=== PATIENT | male | born 1955 | race Caucasian/White ===

== ENCOUNTER 2019-07-16 13:59 | Inpatient (IN) ==
[2019-07-16 16:56] LABS: Basophils # 0.1 10*3/uL (0.0-0.2); Basophils % 0.6 % (0.0-0.8); Eosinophils # 0.2 10*3/uL (0.0-0.87); Eosinophils % 2.1 % (0.00-10.9); Hematocrit 31.4 VOL% (42.0-52.0); Hemoglobin 10.1 GM/DL (14.0-18.0); Immature Granulocytes % 0.5 %; Immature Granulocytes Absolute 0.04 #; Lymphocytes # 0.9 10*3/uL (1.4-4.0); Mean Corpuscular HGB Conc 32.2 GM/DL (32-36); Mean Corpuscular Volume 92.9 FL (87-102); Monocytes % 8.6 % (1.7-12.7); Neutrophils % 78.2 % (38.7-73.9); Platelet Count 474 T/CUMM (130-400); Red Blood Count 3.38 MC/CUMM (3.8-5.5); Red Cell Distribution Width 14.3 % (9.3-17.3); White Blood Count 8.6 T/CUMM (4-12)
[2019-07-16] MEDS: AMPICILLIN/SULBACTAM 3,000 MG in SODIUM CHLORIDE 0.9% 100 ML IV SCH ×2 (17:16→22:06)
[2019-07-16 17:24] LABS: Albumin 2.4 G/DL (3.4-5.0); Bilirubin,Total 0.8 MG/DL (0.2-1.0); Calcium 9.1 MG/DL (8.5-10.1); Osmolality,Calculated 284.1 MOS/KG (273-304); Total Protein 8.2 G/DL (6.4-8.3)
[2019-07-16] MEDS ORDERED: GLUCAGON 1 MG VIAL IM PRN (17:31)
[2019-07-16] MEDS ORDERED: DEXTROSE 50% 25 GM/50 ML VIAL IV PRN (17:38)
[2019-07-16] MEDS: ACETAMINOPHEN 325 MG TABLET PO PRN (17:45)
[2019-07-16] MEDS ORDERED: DEXTROSE 10% 25 GM/250 ML BAG IV PRN (18:00)
[2019-07-16] MEDS: DEXT 5% NACL 0.45% KCL 10 MEQ 10 MEQ/1,000 ML BAG IV SCH (18:21)
[2019-07-16] MEDS: ENOXAPARIN 40 MG/0.4 ML SYRINGE SUBCUT SCH (18:22)
[2019-07-16] MEDS: CIPROFLOXACIN 500 MG TABLET PO SCH (20:54)
[2019-07-16] MEDS: GENTAMICIN INJ 560 MG in SODIUM CHLORIDE 0.9% 100 ML IV SCH (20:54)
[2019-07-16] MEDS: INSULIN LISPRO 100 UNIT/ML SUBCUT SCH (21:14)
[2019-07-17] MEDS: ACETAMINOPHEN 325 MG TABLET PO PRN ×3 (01:56→20:02)
[2019-07-17] MEDS: AMPICILLIN/SULBACTAM 3,000 MG in SODIUM CHLORIDE 0.9% 100 ML IV SCH ×4 (03:28→21:12)
[2019-07-17] MEDS: INSULIN LISPRO 100 UNIT/ML SUBCUT SCH ×4 (11:15→20:10)
[2019-07-17] MEDS: CIPROFLOXACIN 500 MG TABLET PO SCH ×2 (11:16→20:03)
[2019-07-17] MEDS: ENOXAPARIN 40 MG/0.4 ML SYRINGE SUBCUT SCH (18:27)
[2019-07-17] MEDS: GENTAMICIN INJ 560 MG in SODIUM CHLORIDE 0.9% 100 ML IV SCH (20:04)
[2019-07-17] MEDS: DEXT 5% NACL 0.45% KCL 10 MEQ 10 MEQ/1,000 ML BAG IV SCH (20:08)
[2019-07-18] MEDS: AMPICILLIN/SULBACTAM 3,000 MG in SODIUM CHLORIDE 0.9% 100 ML IV SCH ×4 (03:31→21:11)
[2019-07-18 05:41] LABS: Basophils # 0.1 10*3/uL (0.0-0.2); Basophils % 1.2 % (0.0-0.8); Eosinophils # 0.3 10*3/uL (0.0-0.87); Eosinophils % 5.7 % (0.00-10.9); Hematocrit 30.8 VOL% (42.0-52.0); Hemoglobin 9.8 GM/DL (14.0-18.0); Immature Granulocytes % 0.3 %; Immature Granulocytes Absolute 0.02 #; Lymphocytes # 1.5 10*3/uL (1.4-4.0); Lymphocytes % 24.6 % (21.2-54.2); Mean Corpuscular HGB Conc 31.8 GM/DL (32-36); Mean Corpuscular Volume 92.5 FL (87-102); Mean Platelet Volume 9.5 FL (9.6-12.0); Monocytes % 10.5 % (1.7-12.7); Neutrophils % 57.7 % (38.7-73.9); Platelet Count 385 T/CUMM (130-400); Red Blood Count 3.33 MC/CUMM (3.8-5.5); Red Cell Distribution Width 14.1 % (9.3-17.3)
[2019-07-18 06:06] LABS: Calcium 8.9 MG/DL (8.5-10.1); Osmolality,Calculated 278.4 MOS/KG (273-304)
[2019-07-18] MEDS: CIPROFLOXACIN 500 MG TABLET PO SCH ×2 (09:39→20:16)
[2019-07-18] MEDS: INSULIN LISPRO 100 UNIT/ML SUBCUT SCH ×4 (10:24→20:20)
[2019-07-18] MEDS: ENOXAPARIN 40 MG/0.4 ML SYRINGE SUBCUT SCH (17:34)
[2019-07-18] MEDS: DEXT 5% NACL 0.45% KCL 10 MEQ 10 MEQ/1,000 ML BAG IV SCH (17:34)
[2019-07-18] MEDS: GENTAMICIN INJ 560 MG in SODIUM CHLORIDE 0.9% 100 ML IV SCH (20:17)
[2019-07-18] MEDS: ACETAMINOPHEN 325 MG TABLET PO PRN (21:17)
[2019-07-19] MEDS: AMPICILLIN/SULBACTAM 3,000 MG in SODIUM CHLORIDE 0.9% 100 ML IV SCH ×4 (04:42→22:03)
[2019-07-19] MEDS: CIPROFLOXACIN 500 MG TABLET PO SCH ×2 (09:08→20:24)
[2019-07-19] MEDS: INSULIN LISPRO 100 UNIT/ML SUBCUT SCH ×3 (13:38→20:30)
[2019-07-19] MEDS: ACETAMINOPHEN 325 MG TABLET PO PRN (13:42)
[2019-07-19] MEDS: ENOXAPARIN 40 MG/0.4 ML SYRINGE SUBCUT SCH (18:34)
[2019-07-19] MEDS: GENTAMICIN INJ 560 MG in SODIUM CHLORIDE 0.9% 100 ML IV SCH (20:25)
[2019-07-19] MEDS: DEXT 5% NACL 0.45% KCL 10 MEQ 10 MEQ/1,000 ML BAG IV SCH (20:28)
[2019-07-20] MEDS: AMPICILLIN/SULBACTAM 3,000 MG in SODIUM CHLORIDE 0.9% 100 ML IV SCH ×4 (03:28→22:26)
[2019-07-20] MEDS: INSULIN LISPRO 100 UNIT/ML SUBCUT SCH ×4 (09:11→20:22)
[2019-07-20] MEDS: CIPROFLOXACIN 500 MG TABLET PO SCH ×2 (09:27→20:22)
[2019-07-20] MEDS: ENOXAPARIN 40 MG/0.4 ML SYRINGE SUBCUT SCH (18:24)
[2019-07-20] MEDS: DEXT 5% NACL 0.45% KCL 10 MEQ 10 MEQ/1,000 ML BAG IV SCH (18:25)
[2019-07-20] MEDS: ACETAMINOPHEN 325 MG TABLET PO PRN (20:22)
[2019-07-20] MEDS: GENTAMICIN INJ 560 MG in SODIUM CHLORIDE 0.9% 100 ML IV SCH (20:23)
[2019-07-21] MEDS: AMPICILLIN/SULBACTAM 3,000 MG in SODIUM CHLORIDE 0.9% 100 ML IV SCH ×3 (04:39→18:55)
[2019-07-21 04:46] LABS: Basophils # 0.1 10*3/uL (0.0-0.2); Basophils % 1.3 % (0.0-0.8); Eosinophils # 0.3 10*3/uL (0.0-0.87); Eosinophils % 5.3 % (0.00-10.9); Hematocrit 32.7 VOL% (42.0-52.0); Hemoglobin 10.4 GM/DL (14.0-18.0); Immature Granulocytes % 0.8 %; Immature Granulocytes Absolute 0.05 #; Lymphocytes # 2.1 10*3/uL (1.4-4.0); Lymphocytes % 35.1 % (21.2-54.2); Mean Corpuscular HGB Conc 31.8 GM/DL (32-36); Mean Platelet Volume 9.6 FL (9.6-12.0); Monocytes % 13.3 % (1.7-12.7); Neutrophils % 44.2 % (38.7-73.9); Platelet Count 473 T/CUMM (130-400); Red Blood Count 3.48 MC/CUMM (3.8-5.5); Red Cell Distribution Width 13.9 % (9.3-17.3)
[2019-07-21 05:45] LABS: Calcium 8.4 MG/DL (8.5-10.1)
[2019-07-21] MEDS: INSULIN LISPRO 100 UNIT/ML SUBCUT SCH ×3 (08:09→18:55)
[2019-07-21] MEDS ORDERED: RIFAMPIN 300 MG CAPSULE PO SCH (09:00)
[2019-07-21] MEDS: CIPROFLOXACIN 500 MG TABLET PO SCH ×2 (09:57→18:54)
[2019-07-21] MEDS ORDERED: LEVOFLOXACIN 750 MG TABLET PO SCH (10:00)
[2019-07-21 16:47] VITALS: BP 142/83
[2019-07-21] MEDS: DEXT 5% NACL 0.45% KCL 10 MEQ 10 MEQ/1,000 ML BAG IV SCH (18:55)
[2019-07-21] MEDS: ENOXAPARIN 40 MG/0.4 ML SYRINGE SUBCUT SCH (18:55)
== END 2019-07-21 18:58 | disposition home or self-care (01) | DRG 74 ==
LOC: N.3E 14:31
PROVIDERS: ADMIT Specialist; ATTEND Specialist

== ENCOUNTER 2021-05-23 12:03 | Inpatient (IN) ==
[2021-05-23] MEDS ORDERED: DEXTROSE 50% 25 GM/50 ML VIAL IV PRN (12:17)
[2021-05-23] MEDS ORDERED: GLUCAGON 1 MG VIAL IM PRN (12:17)
[2021-05-23] MEDS ORDERED: ONDANSETRON 4 MG/2 ML VIAL IV PRN (12:17)
[2021-05-23 14:21] LABS: Basophils # 0.1 10*3/uL (0.0-0.2); Basophils % 0.7 % (0.0-0.8); Eosinophils # 0.3 10*3/uL (0.0-0.87); Eosinophils % 4.5 % (0.00-10.9); Hemoglobin 13.3 GM/DL (14.0-18.0); Immature Granulocytes % 0.4 %; Immature Granulocytes Absolute 0.03 #; Lymphocytes # 1.5 10*3/uL (1.4-4.0); Lymphocytes % 19.7 % (21.2-54.2); Mean Corpuscular HGB Conc 32.4 GM/DL (32-36); Mean Corpuscular Volume 90.5 FL (87-102); Mean Platelet Volume 9.8 FL (9.6-12.0); Monocytes % 9.4 % (1.7-12.7); Neutrophils % 65.3 % (38.7-73.9); Platelet Count 470 T/CUMM (130-400); Red Blood Count 4.53 MC/CUMM (3.8-5.5); Red Cell Distribution Width 13.6 % (9.3-17.3); White Blood Count 7.6 T/CUMM (4-12)
[2021-05-23 14:34] LABS: Albumin 2.7 G/DL (3.4-5.0); Bilirubin,Total 0.4 MG/DL (0.20-1.00); Calcium 9.2 MG/DL (8.5-10.1); Osmolality,Calculated 274.7 MOS/KG (273-304); Potassium 3.7 MMOL/L (3.5-5.1); Total Protein 8.1 G/DL (6.4-8.2)
[2021-05-23] MEDS ORDERED: VANCOMYCIN INJ 1,750 MG in SODIUM CHLORIDE 0.9% 500 ML IV ONE (15:00)
[2021-05-23] MEDS: PIPERACILLIN/TAZOBACTAM 3,375 MG in SODIUM CHLORIDE 0.9% 100 ML IV SCH ×2 (15:01→23:05)
[2021-05-23] MEDS: SODIUM CHLORIDE 0.45% 1,000 ML IV SCH ×2 (15:01→23:04)
[2021-05-23 15:39] LABS: Bilirubin,Urine Negative (Negative); Blood, Urine Negative (Negative); Glucose,Urine (UA) Negative (Negative); Ketones,Urine Negative (Negative); Mucus,Urine Occasional /LPF (Occasional); Nitrite,Urine Negative (Negative); Protein,Urine Negative; RBC,Urine <1 /HPF (0-4); Squamous Epithelial Cell,Urine Occasional /HPF (0-10); Urine Appearance CLEAR (Clear); Urine Color Straw (Yellow); Urine Specific Gravity 1.004 (1.001-1.035); Urine Urobilinogen < 2.0 EU/DL (0.2-1.0)
[2021-05-23] MEDS: ENOXAPARIN 40 MG/0.4 ML SYRINGE SUBCUT SCH (16:00)
[2021-05-23] MEDS: VANCOMYCIN INJ 1,750 MG in SODIUM CHLORIDE 0.9% 500 ML IV SCH (16:04)
[2021-05-23] MEDS: INSULIN LISPRO 100 UNIT/ML SUBCUT SCH ×2 (17:09→20:51)
[2021-05-23] MEDS: ACETAMINOPHEN 325 MG TABLET PO PRN (19:03)
[2021-05-23] MEDS: DOCUSATE SODIUM 100 MG CAPSULE PO SCH (20:39)
[2021-05-24] MEDS: VANCOMYCIN INJ 1,750 MG in SODIUM CHLORIDE 0.9% 500 ML IV SCH ×2 (03:15→17:43)
[2021-05-24] MEDS: PANTOPRAZOLE 40 MG TABLET PO SCH (05:29)
[2021-05-24 06:06] LABS: Risk Ratio 3.49
[2021-05-24] MEDS: SODIUM CHLORIDE 0.45% 1,000 ML IV SCH ×2 (06:15→17:44)
[2021-05-24] MEDS: PIPERACILLIN/TAZOBACTAM 3,375 MG in SODIUM CHLORIDE 0.9% 100 ML IV SCH ×2 (06:27→17:43)
[2021-05-24 08:45] LABS: Basophils % 0.1 % (0.0-0.8); Eosinophils # 0.3 10*3/uL (0.0-0.87); Eosinophils % 4.1 % (0.00-10.9); Hematocrit 37.7 VOL% (42.0-52.0); Immature Granulocytes % 0.5 %; Immature Granulocytes Absolute 0.04 #; Lymphocytes # 0.6 10*3/uL (1.4-4.0); Lymphocytes % 7.2 % (21.2-54.2); Mean Corpuscular HGB Conc 31.8 GM/DL (32-36); Mean Corpuscular Volume 90.6 FL (87-102); Mean Platelet Volume 9.9 FL (9.6-12.0); Monocytes % 7.1 % (1.7-12.7); Platelet Count 463 T/CUMM (130-400); Red Blood Count 4.16 MC/CUMM (3.8-5.5); Red Cell Distribution Width 13.9 % (9.3-17.3); White Blood Count 8.1 T/CUMM (4-12)
[2021-05-24 09:02] LABS: Calcium 8.4 MG/DL (8.5-10.1); Osmolality,Calculated 276.4 MOS/KG (273-304)
[2021-05-24] MEDS: DOCUSATE SODIUM 100 MG CAPSULE PO SCH ×2 (09:06→21:17)
[2021-05-24] MEDS: amLODIPine 10 MG TABLET PO SCH (09:06)
[2021-05-24] MEDS: metFORMIN 500 MG TABLET PO SCH ×2 (09:06→19:47)
[2021-05-24] MEDS: SERTRALINE 25 MG TABLET PO SCH (09:06)
[2021-05-24] MEDS: LOSARTAN 50 MG TABLET PO SCH (09:06)
[2021-05-24] MEDS: INSULIN LISPRO 100 UNIT/ML SUBCUT SCH ×4 (09:07→20:36)
[2021-05-24] MEDS ORDERED: LIDOCAINE 1% 20 ML VIAL ONE (12:07)
[2021-05-24] MEDS ORDERED: BUPIVACAINE MPF 0.25% 30 ML VIAL ONE (12:07)
[2021-05-24] MEDS ORDERED: fentaNYL 100 MCG/2 ML VIAL ONE (13:04)
[2021-05-24] MEDS ORDERED: MIDAZOLAM 2 MG/2 ML VIAL ONE (13:04)
[2021-05-24] MEDS ORDERED: LIDOCAINE 2% 5 ML VIAL ONE (13:23)
[2021-05-24] MEDS ORDERED: LACTATED RINGERS 1,000 ML IV ONE (13:23)
[2021-05-24] MEDS ORDERED: propofoL 200 MG/20 ML VIAL IV ONE (13:23)
[2021-05-24] MEDS ORDERED: SEVOFLURANE 1 UNIT/15 MINUTE INH ONE (13:23)
[2021-05-24] MEDS ORDERED: PHENYLEPHRINE 1 MG/10 ML SYRINGE IV ONE (13:24)
[2021-05-24] MEDS ORDERED: HYDROmorphone 2 MG/1 ML VIAL IV PRN (14:30)
[2021-05-24] MEDS ORDERED: ONDANSETRON 4 MG/2 ML VIAL IV PRN (14:30)
[2021-05-24] MEDS: METOPROLOL TARTRATE 25 MG TABLET PO SCH ×2 (17:42→21:00)
[2021-05-24] MEDS: HYDROmorphone 2 MG/1 ML VIAL IV PRN (21:02)
[2021-05-24] MEDS: ATORVASTATIN 20 MG TABLET PO SCH (21:04)
[2021-05-24] MEDS: ACETAMINOPHEN 325 MG TABLET PO PRN (21:04)
[2021-05-24] MEDS: ENOXAPARIN 40 MG/0.4 ML SYRINGE SUBCUT SCH (21:04)
[2021-05-25] MEDS: PIPERACILLIN/TAZOBACTAM 3,375 MG in SODIUM CHLORIDE 0.9% 100 ML IV SCH ×3 (02:00→19:25)
[2021-05-25] MEDS: VANCOMYCIN INJ 1,750 MG in SODIUM CHLORIDE 0.9% 500 ML IV SCH ×2 (06:20→17:00)
[2021-05-25] MEDS: PANTOPRAZOLE 40 MG TABLET PO SCH (06:21)
[2021-05-25] MEDS: DOCUSATE SODIUM 100 MG CAPSULE PO SCH ×2 (08:57→20:00)
[2021-05-25] MEDS: LOSARTAN 50 MG TABLET PO SCH (08:58)
[2021-05-25] MEDS: metFORMIN 500 MG TABLET PO SCH ×2 (08:58→19:24)
[2021-05-25] MEDS: SERTRALINE 25 MG TABLET PO SCH (08:58)
[2021-05-25] MEDS: amLODIPine 10 MG TABLET PO SCH (08:58)
[2021-05-25] MEDS: INSULIN LISPRO 100 UNIT/ML SUBCUT SCH ×4 (08:58→19:34)
[2021-05-25] MEDS: METOPROLOL TARTRATE 25 MG TABLET PO SCH ×2 (08:58→19:59)
[2021-05-25] MEDS: HYDROmorphone 2 MG/1 ML VIAL IV PRN (16:09)
[2021-05-25] MEDS: ACETAMINOPHEN 325 MG TABLET PO PRN (16:59)
[2021-05-25] MEDS: ENOXAPARIN 40 MG/0.4 ML SYRINGE SUBCUT SCH (19:59)
[2021-05-25] MEDS: ATORVASTATIN 20 MG TABLET PO SCH (19:59)
[2021-05-26] MEDS: SODIUM CHLORIDE 0.45% 1,000 ML IV SCH ×4 (02:09→16:16)
[2021-05-26] MEDS: PIPERACILLIN/TAZOBACTAM 3,375 MG in SODIUM CHLORIDE 0.9% 100 ML IV SCH ×3 (02:09→17:38)
[2021-05-26] MEDS: VANCOMYCIN INJ 1,750 MG in SODIUM CHLORIDE 0.9% 500 ML IV SCH (05:49)
[2021-05-26] MEDS: PANTOPRAZOLE 40 MG TABLET PO SCH (05:49)
[2021-05-26] MEDS: INSULIN LISPRO 100 UNIT/ML SUBCUT SCH ×4 (07:43→21:17)
[2021-05-26] MEDS: metFORMIN 500 MG TABLET PO SCH ×2 (08:36→17:38)
[2021-05-26] MEDS: METOPROLOL TARTRATE 25 MG TABLET PO SCH ×2 (10:38→21:28)
[2021-05-26] MEDS: SERTRALINE 25 MG TABLET PO SCH (10:38)
[2021-05-26] MEDS: DOCUSATE SODIUM 100 MG CAPSULE PO SCH ×2 (10:38→21:29)
[2021-05-26] MEDS: amLODIPine 10 MG TABLET PO SCH (10:39)
[2021-05-26] MEDS: LOSARTAN 50 MG TABLET PO SCH (10:39)
[2021-05-26] MEDS: ACETAMINOPHEN 325 MG TABLET PO PRN (16:21)
[2021-05-26] MEDS: ATORVASTATIN 20 MG TABLET PO SCH (21:28)
[2021-05-26] MEDS: ENOXAPARIN 40 MG/0.4 ML SYRINGE SUBCUT SCH (21:29)
[2021-05-27] MEDS: SODIUM CHLORIDE 0.45% 1,000 ML IV SCH ×3 (00:56→14:21)
[2021-05-27] MEDS: PIPERACILLIN/TAZOBACTAM 3,375 MG in SODIUM CHLORIDE 0.9% 100 ML IV SCH ×3 (01:30→17:56)
[2021-05-27] MEDS: PANTOPRAZOLE 40 MG TABLET PO SCH (05:30)
[2021-05-27] MEDS: INSULIN LISPRO 100 UNIT/ML SUBCUT SCH ×4 (07:43→21:30)
[2021-05-27 09:46] LABS: Calcium 8.7 MG/DL (8.5-10.1); Osmolality,Calculated 280.3 MOS/KG (273-304); Potassium 3.2 MMOL/L (3.5-5.1)
[2021-05-27] MEDS: VANCOMYCIN INJ 1,750 MG in SODIUM CHLORIDE 0.9% 500 ML IV SCH (09:58)
[2021-05-27] MEDS: DOCUSATE SODIUM 100 MG CAPSULE PO SCH ×2 (09:58→21:27)
[2021-05-27] MEDS: metFORMIN 500 MG TABLET PO SCH ×2 (09:58→17:56)
[2021-05-27] MEDS: amLODIPine 10 MG TABLET PO SCH (09:58)
[2021-05-27] MEDS: LOSARTAN 50 MG TABLET PO SCH (09:59)
[2021-05-27] MEDS: METOPROLOL TARTRATE 25 MG TABLET PO SCH ×2 (09:59→21:27)
[2021-05-27] MEDS: SERTRALINE 25 MG TABLET PO SCH (09:59)
[2021-05-27] MEDS: ATORVASTATIN 20 MG TABLET PO SCH (21:27)
[2021-05-27] MEDS: ENOXAPARIN 40 MG/0.4 ML SYRINGE SUBCUT SCH (21:27)
[2021-05-28] MEDS: PIPERACILLIN/TAZOBACTAM 3,375 MG in SODIUM CHLORIDE 0.9% 100 ML IV SCH (03:21)
[2021-05-28] MEDS: PANTOPRAZOLE 40 MG TABLET PO SCH (05:55)
[2021-05-28] MEDS ORDERED: LOPERAMIDE 2 MG CAPSULE PO PRN (06:01)
[2021-05-28] MEDS: INSULIN LISPRO 100 UNIT/ML SUBCUT SCH ×4 (07:30→21:23)
[2021-05-28] MEDS: SODIUM CHLORIDE 0.45% 1,000 ML IV SCH ×3 (07:30→14:36)
[2021-05-28] MEDS: SERTRALINE 25 MG TABLET PO SCH (08:47)
[2021-05-28] MEDS: amLODIPine 10 MG TABLET PO SCH (08:47)
[2021-05-28] MEDS: metFORMIN 500 MG TABLET PO SCH ×2 (08:48→16:57)
[2021-05-28] MEDS: LOSARTAN 50 MG TABLET PO SCH (08:48)
[2021-05-28] MEDS: METOPROLOL TARTRATE 25 MG TABLET PO SCH ×2 (08:48→21:25)
[2021-05-28] MEDS: DOCUSATE SODIUM 100 MG CAPSULE PO SCH ×2 (09:49→21:22)
[2021-05-28] MEDS: VANCOMYCIN INJ 1,750 MG in SODIUM CHLORIDE 0.9% 500 ML IV SCH (09:49)
[2021-05-28 10:29] LABS: Calcium 8.5 MG/DL (8.5-10.1); Osmolality,Calculated 284.8 MOS/KG (273-304); Potassium 3.5 MMOL/L (3.5-5.1)
[2021-05-28] MEDS: ATORVASTATIN 20 MG TABLET PO SCH (21:25)
[2021-05-28] MEDS: ENOXAPARIN 40 MG/0.4 ML SYRINGE SUBCUT SCH (21:26)
[2021-05-29] MEDS: PANTOPRAZOLE 40 MG TABLET PO SCH (05:30)
[2021-05-29] MEDS: SODIUM CHLORIDE 0.45% 1,000 ML IV SCH ×2 (07:31→14:22)
[2021-05-29] MEDS: amLODIPine 10 MG TABLET PO SCH (09:56)
[2021-05-29] MEDS: metFORMIN 500 MG TABLET PO SCH (09:56)
[2021-05-29] MEDS: METOPROLOL TARTRATE 25 MG TABLET PO SCH (09:57)
[2021-05-29] MEDS: LOSARTAN 50 MG TABLET PO SCH (09:57)
[2021-05-29] MEDS: VANCOMYCIN INJ 1,750 MG in SODIUM CHLORIDE 0.9% 500 ML IV SCH (09:57)
[2021-05-29] MEDS: DOCUSATE SODIUM 100 MG CAPSULE PO SCH (09:57)
[2021-05-29] MEDS: SERTRALINE 25 MG TABLET PO SCH (09:57)
[2021-05-29] MEDS: INSULIN LISPRO 100 UNIT/ML SUBCUT SCH ×2 (10:04→12:20)
[2021-05-29 12:27] VITALS: BP 130/63
[2021-05-29] MEDS: ACETAMINOPHEN 325 MG TABLET PO PRN (13:48)
== END 2021-05-29 14:56 | disposition home or self-care (01) | DRG 629 ==
LOC: N.5E 12:33
PROVIDERS: ADMIT Family Medicine; ATTEND Family Medicine